=== PATIENT | female | born 1955 | race African-American/Black ===

== ENCOUNTER 2017-06-14 10:48 | Emergency (ER) | payer OTHER ==
[2017-06-14 11:00] VITALS: BP 138/74; TEMP 97.8; BMI 34.0
--- NOTE | 2017-06-14 11:11 | ED.PDOC ---
General ED Provider: Dr. EMMIE BARBOUR-ER Chief Complaint: Cough Stated Complaint: my sinuses are draining Time Seen by Physician: 10:55 Mode of Arrival: Walk-In Information Source: Patient Exam Limitations: No limitations Primary Care Provider: [facility] and Triage Documentation Reviewed and Agree: Yes Reviewed sepsis parameters & appropriate labs ordered?: Yes System Inflammatory Response Syndrome: Not Applicable Sepsis Protocol: For patient's 13 years and over: Temp is 96.8 and below OR 101 and greater Pulse >90 BPM Resp >20/minute Acutely Altered Mental Status Are patient's symptoms suggestive of a new infection, such as: -Pneumonia -Skin, Soft Tissue -Endocarditis -UTI -Bone, Joint Infection -Implantable Device -Acute Abdominal Infection -Wound Infection -Meningitis -Blood Stream Catheter Infection -Unknown EENT Complaint Exam - Nasal Complaint/Exam Onset/Duration: 2 days Symptoms Are: Still present Initial Severity: Mild Current Severity: Moderate Location: Bilateral Aggravating: Reports: URI Associated Signs and Symptoms: Reports: Nasal congestion, Sinus pain, Nasal discharge. Denies: Bruising, Hematuria, Hematochezia, Foreign body, Abnormal coags Foreign Body Present: No Septal Hematoma: No Differential Diagnoses: Allergic Rhinitis, Sinusitis Review of Systems - Review Of Systems Constitutional: Reports: No symptoms Eyes: Reports: No symptoms Ears, Nose, Mouth, Throat: Reports: Nose discharge Respiratory: Reports: Cough Cardiac: Reports: No symptoms GI: Reports: No symptoms : Reports: No symptoms Musculoskeletal: Reports: No symptoms Skin: Reports: No symptoms Neurological: Reports: No symptoms Endocrine: Reports: No symptoms Hematologic/Lymphatic: Reports: No symptoms All Other Systems: Reviewed and Negative Past Medical History - Past Medical History Previously Healthy: No Endocrine: Reports: Unknown Cardiovascular: Reports: Unknown Respiratory: Reports: Unknown Hematological: Reports: Unknown Gastrointestinal: Reports: Unknown Genitourinary: Reports: Unknown Neuro/Psych: Reports: Unknown Musculoskeletal: Reports: Unknown Cancer: Reports: Unknown Last Menstrual Period: hysterectomy - Surgical History General Surgical History: Reports: Unknown - Family History Family History: Reports: Unknown - Social History Smoking Status: Never smoker Hx Substance Use: No Alcohol Screening: None Physical Exam - Physical Exam Appearance: Well-appearing, No pain distress, Well-nourished Eyes: JENNA, EOMI, Conjunctiva clear ENT: Rhinorrhea Neck: Supple Respiratory: Airway patent, Breath sounds clear, Breath sounds equal, Respirations nonlabored Cardiovascular: RRR, Pulses normal, No rub, No murmur GI/: Soft, Nontender, No masses, Bowel sounds normal, No Organomegaly Musculoskeletal: Normal strength, ROM intact, No edema, No calf tenderness Skin: Warm, Dry, Normal color Neurological: Sensation intact, Motor intact, Reflexes intact, Cranial nerves intact, Alert, Oriented Psychiatric: Affect appropriate, Mood appropriate Critical Care Note - Critical Care Note Total Time (mins): 0 Course - Course Vital Signs: Temp Pulse Resp BP Pulse Ox 06/14/17 10:50 97.8 F 104 H 20 138/74 98 Departure - Departure Time of Disposition: 11:11 Disposition: HOME SELF-CARE Discharge Problem: Sinusitis Qualifiers: Sinusitis location: unspecified location Chronicity: acute Recurrence: non- recurrent Qualified Code(s): J01.90 - Acute sinusitis, unspecified Instructions: Rhinosinusitis (ED) Condition: Good Pt referred to PMD for follow-up: Yes IPMP verified?: No Additional Instructions: augmentin 875mg bid x 10 days plus medrol dose pack===f/u with pcp if not improved Allergies/Adverse Reactions: Allergies No Known Allergies Allergy (Unverified 06/14/17 10:58) Home Medications: Ambulatory Orders Ascorbic Acid 500 mg PO BID 06/14/17 Aspirin [Aspirin EC] 81 mg PO DAILY 06/14/17 Chlorthalidone 25 mg PO DAILY 06/14/17 Cholecalciferol (Vitamin D3) [Vitamin D3] 4,000 unit PO DAILY 06/14/17 Potassium Chloride [K-Dur] 20 meq PO BID 06/14/17 Vitamin B Complex [B Complex] 1 each PO Q48HR 06/14/17 Disposition Discussed With: Patient
== END 2017-06-14 11:18 | disposition home or self-care (01) ==
LOC: ED 10:48
DX: J01.90 Acute sinusitis, unspecified (principal)
CPT/HCPCS: 99282